=== PATIENT | female | born 1970 | race African-American/Black ===

== ENCOUNTER 2021-06-27 16:39 | Emergency (ER) | payer BC ==
[~2021-06-27] VITALS: Ht 180.3 cm; Wt 104.3 kg
[2021-06-27] MEDS ORDERED: TESSALON PERLE100 MG PO (17:10)
[2021-06-27] MEDS ORDERED: ZOFRAN4 MG SL (17:10)
[2021-06-27 18:20] VITALS: BP 124/81
== END 2021-06-27 18:23 | disposition home or self-care (01) ==
LOC: ER 17:07
DX: R50.9 Fever, unspecified (principal); R05 Cough; U07.1 COVID-19; E05.90 Thyrotoxicosis, unspecified without thyrotoxic crisis or storm
CPT/HCPCS: 99283